=== PATIENT | male | born 1950 | race Caucasian/White ===

== ENCOUNTER 2016-10-11 06:21 | Outpatient (CLI) | payer MEDICARE ==
[~2016-10-11] VITALS: Ht 177.8 cm; Wt 77.3 kg
[2016-10-11] VITALS (24 sets, daily range): BP systolic 111–1224; BP diastolic 66–87; PULSE 80–109
[~2016-10-11 06:21] MED LIST: ALDACTONE 25MG25 M1 PO; LASIX 20MG TABL20 MG PO; PRINIVIL20 MG PO; PROTONIX 40MG T40 MG PO
[2016-10-11 07:04] LABS: INR 1.3 (0.8-3.0); PROTHROMBIN TIME 14.3 SECONDS (9.7-12.8)
[2016-10-11 14:25] LABS: PERITONEAL -POLYMORPHONUCLEAR 20.2 % (0-25)
[2016-10-11 14:35] LABS: PERITONEAL FLUID RBC 3000 /mm3 (0-0)
[2016-10-25] MEDS ORDERED: VITAMIN B COMPL1 SGL PO (10:54)
[2016-10-25] MEDS ORDERED: FOLIC ACID 40400 MCG PO (10:54)
[2016-10-25] MEDS ORDERED: MULTIPLE VITAMI1 CAP PO (10:55)
== END 2016-10-11 13:37 | disposition home or self-care (01) ==
LOC: COL.RAD 06:21
PROVIDERS: Physician Assistant
DX: K74.60 Unspecified cirrhosis of liver (principal); B19.20 Unspecified viral hepatitis C without hepatic coma; R18.8 Other ascites; R16.2 Hepatomegaly with splenomegaly, not elsewhere classified; K76.6 Portal hypertension; K63.89 Other specified diseases of intestine; R59.0 Localized enlarged lymph nodes; R79.89 Other specified abnormal findings of blood chemistry; Z87.891 Personal history of nicotine dependence
CPT/HCPCS: J2250; J3010; Q9967

== ENCOUNTER → 2016-10-25 | Day surgery (SDC) | payer MEDICARE ==
[~2016-10-25] VITALS: Ht 177.8 cm; Wt 76.3 kg
[~2016-10-25] MED LIST changes: +FOLIC ACID 40400 MCG PO; +MULTIPLE VITAMI1 CAP PO; +VITAMIN B COMPL1 SGL PO
[2016-10-25 10:47] VITALS: BP 127/89; PULSE 86; TEMP 98.5
[2016-10-25 12:49] VITALS: BP 119/76; PULSE 83; TEMP 97.8
[2016-10-25 13:00] VITALS: BP 116/77; PULSE 87
[2016-10-25 13:26] VITALS: BP 128/89; PULSE 77
== END ==
LOC: SDCO 10:19
DX: I85.00 Esophageal varices without bleeding (principal); K29.30 Chronic superficial gastritis without bleeding; K74.60 Unspecified cirrhosis of liver; B19.20 Unspecified viral hepatitis C without hepatic coma; I10 Essential (primary) hypertension; K76.6 Portal hypertension; R16.0 Hepatomegaly, not elsewhere classified; R94.5 Abnormal results of liver function studies; R18.8 Other ascites; Z87.891 Personal history of nicotine dependence; Z86.59 Personal history of other mental and behavioral disorders
CPT/HCPCS: OP; J2250; J3010; J7030

== ENCOUNTER 2016-11-08 06:00 | Day surgery (SDC) | payer MEDICARE ==
[~2016-11-08] VITALS: Ht 177.8 cm; Wt 73.3 kg
[2016-11-08 06:27] VITALS: BP 119/83; PULSE 74; TEMP 98
[2016-11-08 07:24] VITALS: BP 125/82; PULSE 80; TEMP 97.8
[2016-11-08 07:40] VITALS: BP 96/77; PULSE 88
[2016-11-08 07:55] VITALS: BP 114/78; PULSE 77
== END 2016-11-08 08:00 | disposition home or self-care (01) ==
LOC: SDCO 06:00
DX: Z12.11 Encounter for screening for malignant neoplasm of colon (principal); C22.0 Liver cell carcinoma; K64.1 Second degree hemorrhoids; K74.60 Unspecified cirrhosis of liver; I85.00 Esophageal varices without bleeding; B19.20 Unspecified viral hepatitis C without hepatic coma
CPT/HCPCS: OP; J2250; J3010; J7030

== ENCOUNTER 2017-10-26 18:43 | Inpatient (IN) | payer MEDICARE, OTHER ==
[~2017-10-26] VITALS: Ht 177.8 cm; Wt 70.4 kg
[2017-10-26] MEDS ORDERED: XIFAXAN200 MG PO (19:42)
[2017-10-26] MEDS ORDERED: ENULOSE10 GM/15 M PO (19:43)
[2017-10-26 19:47] LABS: BASO % 0.3 % (0.0-2.0); EOS # 0.2 (0.0-0.7); EOS % 1.6 % (0-4.0); GRAN # 7.8 (1.4-6.5); GRAN % 74.8 % (42.2-75.2); HEMOGLOBIN 12.4 g/dl (13.5-18.0); LYMPH # 1.2 (1.2-3.4); LYMPH % 11.3 % (20.0-51.0); MEAN CELL VOLUME 90 fl (80.0-100.0); MEAN CORPUSCULAR HEMOGLOBIN 33 pg (27.0-31.0); MEAN CORPUSCULAR HGB CONC 37 g/dl (33.0-37.0); MEAN PLATELET VOLUME 8.9 fl (7.4-10.4); MONO # 1.2 (0.1-0.6); MONO % 11.4 % (1.7-9.3); PLATELET COUNT 110 K/mm3 (130-400); RED BLOOD COUNT 3.71 M/mm3 (4.20-5.60); REDCELL DISTRIBUTION WIDTH-CV 15.1 % (11.5-14.5)
[2017-10-26 19:52] LABS: HEMATOCRIT 33.3 % (42.0-52.0); INR 1.4 (0.8-3.0); PROTHROMBIN TIME 15.9 SECONDS (9.7-12.8)
[2017-10-26 19:54] LABS: PARTIAL THROMBOPLASTIN TIME 37.2 SECONDS (26.0-37.0)
[2017-10-26 19:58] LABS: COLLECTION METHOD CLEAN CATCH
[2017-10-26 20:03] LABS: ALBUMIN 2.9 gm/dL (3.5-5.0); BILIRUBIN,TOTAL 4.2 mg/dL (0.0-1.0); CALCIUM 8.7 mg/dL (8.4-10.2); CREATININE, serum 1.17 mg/dL (0.66-1.25); POTASSIUM 4.8 mmol/L (3.4-5.0); TOTAL PROTEIN 7.1 gm/dL (6.4-8.2)
[2017-10-26 20:07] LABS: PH 6 (5-8); SQUAMOUS EPITHELIAL None Seen /hpf; URINE APPEARANCE Clear; URINE BACTERIA None Seen /hpf; URINE BILIRUBIN Negative (NEGATIVE); URINE BLOOD Negative (NEGATIVE); URINE COLOR Yellow; URINE GLUCOSE Negative (NEGATIVE); URINE KETONE Negative (NEGATIVE); URINE LEUKOCYTE ESTERASE Negative (NEGATIVE); URINE NITRATE Negative (NEGATIVE); URINE PROTEIN(semi-quant) Negative (NEGATIVE); URINE RBC 0-2 /hpf
[2017-10-26 22:17] LABS: CALCIUM 7.8 mg/dL (8.4-10.2); CREATININE, serum 1.02 mg/dL (0.66-1.25); POTASSIUM 4.6 mmol/L (3.4-5.0)
[2017-10-26 23:47] LABS: MAGNESIUM 1.8 mg/dL (1.6-2.3); PHOSPHOROUS 3.4 mg/dL (2.5-4.5)
[2017-10-27] VITALS (9 sets, daily range): BP systolic 97–128; BP diastolic 45–76; PULSE 42–117; TEMP 97.8–98.7
[2017-10-27 02:23] LABS: CALCIUM 8.1 mg/dL (8.4-10.2); CREATININE, serum 1.13 mg/dL (0.66-1.25); POTASSIUM 4.4 mmol/L (3.4-5.0)
[2017-10-27 07:50] LABS: BASO % 0.3 % (0.0-2.0); EOS # 0.2 (0.0-0.7); EOS % 2.4 % (0-4.0); GRAN # 6.5 (1.4-6.5); GRAN % 69.2 % (42.2-75.2); HEMATOCRIT 28.8 % (42.0-52.0); HEMOGLOBIN 10.5 g/dl (13.5-18.0); LYMPH # 1.2 (1.2-3.4); LYMPH % 12.5 % (20.0-51.0); MEAN CELL VOLUME 91 fl (80.0-100.0); MEAN CORPUSCULAR HEMOGLOBIN 33 pg (27.0-31.0); MEAN CORPUSCULAR HGB CONC 37 g/dl (33.0-37.0); MEAN PLATELET VOLUME 8.9 fl (7.4-10.4); MONO # 1.4 (0.1-0.6); PLATELET COUNT 105 K/mm3 (130-400); RED BLOOD COUNT 3.17 M/mm3 (4.20-5.60); REDCELL DISTRIBUTION WIDTH-CV 15.4 % (11.5-14.5)
[2017-10-27 07:52] LABS: CALCIUM 7.6 mg/dL (8.4-10.2); CREATININE, serum 0.99 mg/dL (0.66-1.25); POTASSIUM 4.2 mmol/L (3.4-5.0)
[2017-10-27 09:35] LABS: CALCIUM 7.8 mg/dL (8.4-10.2); CREATININE, serum 0.99 mg/dL (0.66-1.25); POTASSIUM 4.5 mmol/L (3.4-5.0)
[2017-10-27 16:01] LABS: CREATININE, serum 0.97 mg/dL (0.66-1.25); POTASSIUM 4.2 mmol/L (3.4-5.0)
[2017-10-27 20:44] LABS: CALCIUM 7.7 mg/dL (8.4-10.2); CREATININE, serum 0.94 mg/dL (0.66-1.25); POTASSIUM 4.1 mmol/L (3.4-5.0)
[2017-10-28 04:19] VITALS: BP 90/60; PULSE 91; TEMP 98.8
[2017-10-28 07:15] LABS: BASO % 0.6 % (0.0-2.0); EOS # 0.3 (0.0-0.7); EOS % 3.7 % (0-4.0); GRAN # 4.6 (1.4-6.5); GRAN % 64.8 % (42.2-75.2); HEMATOCRIT 30.9 % (42.0-52.0); HEMOGLOBIN 11.1 g/dl (13.5-18.0); LYMPH # 1.2 (1.2-3.4); LYMPH % 16.3 % (20.0-51.0); MEAN CELL VOLUME 93 fl (80.0-100.0); MEAN CORPUSCULAR HEMOGLOBIN 33 pg (27.0-31.0); MEAN CORPUSCULAR HGB CONC 36 g/dl (33.0-37.0); MEAN PLATELET VOLUME 8.8 fl (7.4-10.4); MONO % 13.6 % (1.7-9.3); PLATELET COUNT 109 K/mm3 (130-400); RED BLOOD COUNT 3.32 M/mm3 (4.20-5.60); REDCELL DISTRIBUTION WIDTH-CV 15.4 % (11.5-14.5)
[2017-10-28 08:06] VITALS: BP 111/65; PULSE 73; TEMP 98
[2017-10-28 08:24] LABS: ALBUMIN 2.3 gm/dL (3.5-5.0); BILIRUBIN UNCONJUGATED 2.4 mg/dL (0.0-1.1); BILIRUBIN,DIRECT 1.5 mg/dL (0.0-0.4); BILIRUBIN,TOTAL 3.8 mg/dL (0.0-1.0); TOTAL PROTEIN 6.2 gm/dL (6.4-8.2)
[2017-10-28 08:55] LABS: CALCIUM 7.9 mg/dL (8.4-10.2); CREATININE, serum 0.89 mg/dL (0.66-1.25); POTASSIUM 4.1 mmol/L (3.4-5.0)
[2017-10-28 11:33] VITALS: BP 96/58; PULSE 68; TEMP 98.2
[2017-10-28 12:34] LABS: TSH w REFLEX 5.12 uIU/mL (0.465-4.680)
[2017-10-28 15:13] VITALS: BP 97/57; PULSE 97; TEMP 98.5
[2017-10-28 20:20] VITALS: BP 96/56; PULSE 104; TEMP 98.7
[2017-10-29] VITALS (7 sets, daily range): BP systolic 84–968; BP diastolic 49–64; PULSE 92–109; TEMP 98.2–99.9
[2017-10-29 07:01] LABS: CALCIUM 7.5 mg/dL (8.4-10.2); CREATININE, serum 0.89 mg/dL (0.66-1.25); POTASSIUM 4.5 mmol/L (3.4-5.0)
[2017-10-29 16:18] LABS: INR 1.5 (0.8-3.0)
[2017-10-29 17:48] LABS: COLLECTION METHOD CLEAN CATCH
[2017-10-29 18:08] LABS: MUCOUS Present /lpf; PH 5 (5-8); SQUAMOUS EPITHELIAL 0-2 /hpf; URINE APPEARANCE Clear; URINE BACTERIA None Seen /hpf; URINE BILIRUBIN Negative (NEGATIVE); URINE BLOOD Negative (NEGATIVE); URINE COLOR Amber; URINE GLUCOSE Negative (NEGATIVE); URINE KETONE Negative (NEGATIVE); URINE LEUKOCYTE ESTERASE Negative (NEGATIVE); URINE NITRATE Negative (NEGATIVE); URINE PROTEIN(semi-quant) Negative (NEGATIVE); URINE RBC 0-2 /hpf; URINE UROBILINOGEN >=4.0 mg/dL (NEGATIVE)
[2017-10-29 23:38] LABS: CORTISOL RANDOM 16 ug/dL (3-20)
[2017-10-30 00:19] VITALS: BP 109/70; PULSE 111; TEMP 98.5
[2017-10-30 04:36] VITALS: BP 92/56; PULSE 106; TEMP 98.5
[2017-10-30 07:45] LABS: CALCIUM 7.6 mg/dL (8.4-10.2); CREATININE, serum 0.91 mg/dL (0.66-1.25); POTASSIUM 4.2 mmol/L (3.4-5.0)
[2017-10-30 08:21] VITALS: BP 101/67; PULSE 110; TEMP 98.1
[2017-10-30 11:12] VITALS: BP 102/63; PULSE 108; TEMP 98.1
[2017-10-30 12:09] LABS: ALBUMIN 2.2 gm/dL (3.5-5.0); BILIRUBIN,TOTAL 2.7 mg/dL (0.0-1.0); INR 1.5 (0.8-3.0); PROTHROMBIN TIME 17.3 SECONDS (9.7-12.8); TOTAL PROTEIN 5.8 gm/dL (6.4-8.2)
[2017-10-30 13:41] VITALS: BP 102/63; PULSE 108; TEMP 98.1
[2017-11-01 10:38] LABS: ADRENOCORTICOTROPIC HORMONE <5.0 pg/mL (())
== END 2017-10-30 14:00 | disposition short-term general hospital (02) | DRG 71 ==
LOC: COL.ER 18:43 → MEDICAL 21:46
PROVIDERS: Emergency Medicine; Hospitalist; Internal Medicine Nephrology; Nurse Practitioner Family; Physician Assistant
DX: G93.40 Encephalopathy, unspecified (principal); K56.7 Ileus, unspecified; R18.8 Other ascites; E87.2 Acidosis; E87.1 Hypo-osmolality and hyponatremia; C22.7 Other specified carcinomas of liver; E44.0 Moderate protein-calorie malnutrition; K74.60 Unspecified cirrhosis of liver; B18.2 Chronic viral hepatitis C; I10 Essential (primary) hypertension; D64.9 Anemia, unspecified; D69.6 Thrombocytopenia, unspecified; K80.20 Calculus of gallbladder without cholecystitis without obstruction; Z92.21 Personal history of antineoplastic chemotherapy; Z68.23 Body mass index [BMI] 23.0-23.9, adult
CPT/HCPCS: OP; 99222-AI; 99233-AI; 99239; G0378; J0696; J7030

== ENCOUNTER 2017-11-21 09:00 | Day surgery (SDC) | payer MEDICARE, OTHER ==
[~2017-11-21] VITALS: Ht 177.8 cm; Wt 70.0 kg
[~2017-11-21 09:00] MED LIST changes: +ENULOSE10 GM/15 M PO; +XIFAXAN200 MG PO
[2017-11-21] MEDS ORDERED: BACTRIM 400 MG-1 TAB PO (10:01)
[2017-11-21] MEDS ORDERED: L-CARNITINE500 M1 PO (10:02)
[2017-11-21 10:12] VITALS: BP 113/74; PULSE 82; TEMP 97.6
[2017-11-21 11:20] VITALS: BP 136/79; PULSE 98; TEMP 97.7
[2017-11-21 11:30] VITALS: BP 124/80; PULSE 89
[2017-11-21 11:45] VITALS: BP 125/83; PULSE 86
== END 2017-11-21 12:01 | disposition home or self-care (01) ==
LOC: SDCO 09:00
DX: I85.00 Esophageal varices without bleeding (principal); K29.30 Chronic superficial gastritis without bleeding; K74.60 Unspecified cirrhosis of liver; C22.0 Liver cell carcinoma; B19.20 Unspecified viral hepatitis C without hepatic coma
CPT/HCPCS: J2250; J3010; J7030

== ENCOUNTER 2017-12-04 10:21 | Emergency (ER) | payer MEDICARE, OTHER ==
[~2017-12-04] VITALS: Ht 157.5 cm; Wt 73.2 kg
[~2017-12-04 10:21] MED LIST changes: +BACTRIM 400 MG-1 TAB PO; +L-CARNITINE500 M1 PO
[2017-12-04] MEDS ORDERED: ULTRAM 50MG TAB50 MG PO (10:56)
[2017-12-04 12:17] LABS: HEMOGLOBIN 11.7 g/dl (13.5-18.0); MEAN CELL VOLUME 92 fl (80.0-100.0); MEAN CORPUSCULAR HEMOGLOBIN 33 pg (27.0-31.0); MEAN CORPUSCULAR HGB CONC 36 g/dl (33.0-37.0); MEAN PLATELET VOLUME 8.2 fl (7.4-10.4); PLATELET COUNT 96 K/mm3 (130-400); RED BLOOD COUNT 3.57 M/mm3 (4.20-5.60); REDCELL DISTRIBUTION WIDTH-CV 14.6 % (11.5-14.5)
[2017-12-04 12:22] LABS: INR 1.5 (0.8-3.0); PROTHROMBIN TIME 16.6 SECONDS (9.7-12.8)
[2017-12-04 12:23] LABS: ALANINE AMINOTRANSFERASE 59 U/L (21-72); ALBUMIN 2.8 gm/dL (3.5-5.0); ALKALINE PHOSPHATASE 164 U/L (50-136); ANION GAP 7 mmol/L (7-16); AST,SGOT 81 U/L (15-37); BLOOD UREA NITROGEN 16 mg/dL (9-20); CALCIUM 7.8 mg/dL (8.4-10.2); CARBON DIOXIDE 20 mmol/L (22-30); CHLORIDE 99 mmol/L (98-107); CREATININE, serum 1.32 mg/dL (0.66-1.25); GLUCOSE 97 mg/dL (74-106); POTASSIUM 4.5 mmol/L (3.4-5.0); SODIUM 127 mmol/L (137-145); TOTAL PROTEIN 6.9 gm/dL (6.4-8.2)
[2017-12-04 12:25] LABS: PARTIAL THROMBOPLASTIN TIME 38.6 SECONDS (26.0-37.0)
[2017-12-04 12:29] LABS: HEMATOCRIT 32.8 % (42.0-52.0)
[2017-12-04 12:37] LABS: TROPONIN-I < 0.012 ng/mL (0.000-0.034)
[2017-12-04 12:46] LABS: BAND 2 % (0-10); EOSINOPHIL 3 % (0-4); LYMPHOCYTE 28 % (20.0-51.0); NEUTROPHILS 64 % (42.0-75.2); PLATELET ESTIMATE DECREASED (NORMAL)
[2017-12-04 12:47] LABS: TOXIC GRANULATION PRESENT
[2017-12-04 14:39] VITALS: BP 108/77; PULSE 90; TEMP 97.9
== END 2017-12-04 14:40 | disposition home or self-care (01) ==
LOC: COL.ER 10:21
PROVIDERS: Emergency Medicine
DX: R07.89 Other chest pain (principal); P74.2 Disturbances of sodium balance of newborn; I10 Essential (primary) hypertension; Z86.19 Personal history of other infectious and parasitic diseases; Z87.19 Personal history of other diseases of the digestive system; Z87.891 Personal history of nicotine dependence
CPT/HCPCS: Q9967

== ENCOUNTER 2017-12-26 09:02 | Day surgery (SDC) | payer MEDICARE, OTHER ==
[~2017-12-26] VITALS: Ht 177.8 cm; Wt 76.7 kg
[~2017-12-26 09:02] MED LIST changes: +ULTRAM 50MG TAB50 MG PO
[2017-12-26 09:27] VITALS: BP 103/73; PULSE 91; TEMP 97.3
[2017-12-26] MEDS ORDERED: LASIX 20MG TABL20 MG PO (09:43)
[2017-12-26] MEDS ORDERED: MULTIPLE VITAMI1 CAP PO (09:44)
[2017-12-26] MEDS ORDERED: VITAMIN B COMPL1 SGL PO (09:45)
[2017-12-26 11:35] VITALS: BP 116/73; PULSE 95; TEMP 97.7
[2017-12-26 11:50] VITALS: BP 99/75; PULSE 91
[2017-12-26 12:05] VITALS: BP 92/71; PULSE 91
[2017-12-26 12:20] VITALS: BP 83/55; PULSE 87
[2017-12-26 12:25] VITALS: BP 106/79
[2017-12-27] MEDS ORDERED: XIFAXAN200 MG PO (16:28)
[2017-12-27] MEDS ORDERED: ALDACTONE 100M100 MG PO (16:30)
[2017-12-30] MEDS ORDERED: L-CARNITINE250 M1 PO (15:32)
== END 2017-12-26 12:45 | disposition home or self-care (01) ==
LOC: SDCO 09:02
DX: I85.00 Esophageal varices without bleeding (principal); K74.60 Unspecified cirrhosis of liver; K29.30 Chronic superficial gastritis without bleeding; K72.91 Hepatic failure, unspecified with coma; D69.6 Thrombocytopenia, unspecified; K72.90 Hepatic failure, unspecified without coma; B19.20 Unspecified viral hepatitis C without hepatic coma
CPT/HCPCS: J2250; J3010; J7030

== ENCOUNTER 2017-12-27 16:05 | Observation (INO) | payer MEDICARE, OTHER ==
[~2017-12-27] VITALS: Ht 177.8 cm; Wt 75.6 kg
[2017-12-27] MEDS ORDERED: XIFAXAN200 MG PO (16:28)
[2017-12-27] MEDS ORDERED: ALDACTONE 100M100 MG PO (16:30)
[2017-12-27 16:52] LABS: BASO % 0.2 % (0.0-2.0); EOS % 0.2 % (0-4.0); GRAN # 7.4 (1.4-6.5); GRAN % 79.4 % (42.2-75.2); HEMOGLOBIN 10.5 g/dl (13.5-18.0); MEAN CELL VOLUME 93 fl (80.0-100.0); MEAN CORPUSCULAR HEMOGLOBIN 33 pg (27.0-31.0); MEAN CORPUSCULAR HGB CONC 35 g/dl (33.0-37.0); MEAN PLATELET VOLUME 8.9 fl (7.4-10.4); MONO # 0.8 (0.1-0.6); MONO % 8.6 % (1.7-9.3); PLATELET COUNT 112 K/mm3 (130-400); RED BLOOD COUNT 3.22 M/mm3 (4.20-5.60)
[2017-12-27 16:53] LABS: HEMATOCRIT 29.8 % (42.0-52.0)
[2017-12-27 16:58] LABS: INR 1.4 (0.8-3.0); PROTHROMBIN TIME 16.3 SECONDS (9.7-12.8)
[2017-12-27 17:00] LABS: PARTIAL THROMBOPLASTIN TIME 37.5 SECONDS (26.0-37.0)
[2017-12-27 17:10] LABS: ALBUMIN 2.5 gm/dL (3.5-5.0); BILIRUBIN,TOTAL 3.5 mg/dL (0.0-1.0); C-REACTIVE PROTEIN 3.1 mg/dL (0.0-0.9); CALCIUM 7.9 mg/dL (8.4-10.2); CREATININE, serum 1.1 mg/dL (0.66-1.25); POTASSIUM 4.2 mmol/L (3.4-5.0); TOTAL PROTEIN 6.4 gm/dL (6.4-8.2)
[2017-12-27 17:34] LABS: COLLECTION METHOD CLEAN CATCH
[2017-12-27 17:40] LABS: MUCOUS Present /lpf; PH 5 (5-8); SQUAMOUS EPITHELIAL None Seen /hpf; URINE APPEARANCE Clear; URINE BACTERIA None Seen /hpf; URINE BILIRUBIN Negative (NEGATIVE); URINE BLOOD Negative (NEGATIVE); URINE COLOR Yellow; URINE GLUCOSE Negative (NEGATIVE); URINE KETONE Negative (NEGATIVE); URINE LEUKOCYTE ESTERASE Negative (NEGATIVE); URINE NITRATE Negative (NEGATIVE); URINE PROTEIN(semi-quant) Negative (NEGATIVE); URINE RBC 0-2 /hpf; URINE UROBILINOGEN Negative (NEGATIVE)
[2017-12-27 18:14] LABS: PERITONEAL FLUID RBC 1000 /mm3 (0-0)
[2017-12-27 20:31] VITALS: BP 92/58; PULSE 100; TEMP 99.6
[2017-12-28 00:42] VITALS: BP 102/60; PULSE 97; TEMP 99.1
[2017-12-28 05:00] VITALS: BP 98/76; PULSE 94; TEMP 98.7
[2017-12-28 07:23] LABS: BASO % 0.4 % (0.0-2.0); EOS # 0.3 (0.0-0.7); EOS % 3.3 % (0-4.0); GRAN # 5.1 (1.4-6.5); HEMOGLOBIN 10.1 g/dl (13.5-18.0); LYMPH # 1.4 (1.2-3.4); LYMPH % 17.5 % (20.0-51.0); MEAN CELL VOLUME 97 fl (80.0-100.0); MEAN CORPUSCULAR HEMOGLOBIN 32 pg (27.0-31.0); MEAN CORPUSCULAR HGB CONC 33 g/dl (33.0-37.0); MEAN PLATELET VOLUME 8.8 fl (7.4-10.4); MONO # 1.1 (0.1-0.6); MONO % 13.4 % (1.7-9.3); PLATELET COUNT 111 K/mm3 (130-400); RED BLOOD COUNT 3.15 M/mm3 (4.20-5.60); REDCELL DISTRIBUTION WIDTH-CV 16.7 % (11.5-14.5)
[2017-12-28 07:33] LABS: HEMATOCRIT 30.4 % (42.0-52.0)
[2017-12-28 07:34] LABS: ALBUMIN 2.6 gm/dL (3.5-5.0); CALCIUM 7.7 mg/dL (8.4-10.2); CREATININE, serum 1.38 mg/dL (0.66-1.25); POTASSIUM 3.9 mmol/L (3.4-5.0); TOTAL PROTEIN 6.6 gm/dL (6.4-8.2)
[2017-12-28 08:12] VITALS: BP 119/77; PULSE 103; TEMP 98.4
[2017-12-28 11:46] VITALS: BP 126/73; PULSE 50; TEMP 98.5
[2017-12-28 12:14] VITALS: BP 107/68; PULSE 106; TEMP 98.5
[2017-12-28] MEDS ORDERED: CIPRO 500MG TA500 MG PO (13:06)
[2017-12-28] MEDS ORDERED: FLAGYL500 MG PO (13:07)
[2017-12-30] MEDS ORDERED: L-CARNITINE250 M1 PO (15:32)
== END 2017-12-28 14:15 | disposition home or self-care (01) ==
LOC: COL.ER 16:05 → MEDICAL 18:10
PROVIDERS: Emergency Medicine; Nurse Practitioner
DX: K72.90 Hepatic failure, unspecified without coma (principal); R18.8 Other ascites; N17.9 Acute kidney failure, unspecified; E87.1 Hypo-osmolality and hyponatremia; D64.9 Anemia, unspecified; E80.6 Other disorders of bilirubin metabolism; D69.6 Thrombocytopenia, unspecified; K74.60 Unspecified cirrhosis of liver; C22.0 Liver cell carcinoma; B19.20 Unspecified viral hepatitis C without hepatic coma; E46 Unspecified protein-calorie malnutrition; I10 Essential (primary) hypertension; Z79.899 Other long term (current) drug therapy; Z87.891 Personal history of nicotine dependence; E87.2 Acidosis
CPT/HCPCS: G0378; J1170; J2405; J2543; J3010; J3370; J7050; Q9967